=== PATIENT | female | born 1965 | race Caucasian/White ===

== ENCOUNTER → 2017-07-26 | Outpatient (CLI) | payer BC ==
[~2017-07-26] MED LIST: CYMB30CA PO; FLUO1TAB3 PO; GABA400 PO; GABA400C5 PO; IMIT25TA PO; LEVO75TA3 PO; MONT10TA2 PO; OMEP20TA39 PO; OMEP40CA2 PO; PERC7.5T13 PO; PROM12.54 PO; PROM25TA5 PO; PROZ20CA11 PO; SUMA100T2 PO; SYNT150T OR; TIZA4 PO; TRAZ100 PO; TRAZ100T10 PO; VITATAB43 PO; XANA1TAB2 PO; XANA1TAB6 PO
== END ==
LOC: CPRE 10:57
PROVIDERS: ATTEND Obstetrics & Gynecology
DX: Z00.00 Encounter for general adult medical examination without abnormal findings (principal)

== ENCOUNTER → 2017-07-28 | Day surgery (SDC) | payer BC ==
[~2017-07-28] VITALS: Ht 152.4 cm; Wt 73.0 kg
[~2017-07-28] MED LIST changes: +*morphine SULFATE 8 MG/ML PERIprocedure ONLY ONE; +ACETAMINOPHEN 1000 MG/100 ML 100 ML IV ONE; +APREPITANT 40 MG CAP PO ONE; +BUPIVACAINE HCL PF 0.25% 30 ML VIAL ONE; +CHLORHEXIDINE GLUCONATE 2 % 1 PACK (2 CLOTHS) TOPICAL PRN; -CYMB30CA PO; +DEXAMETHASONE SOD PHOS 4 MG/ML VIAL IV ONE; +DO NOT ADM ANY ANTICOAGULANT DRUGS PRN; +DOCUSATE SODIUM 100 MG CAP PO SCH; -GABA400 PO; +GLYCOPYRROLATE 1 MG/5 ML SYRINGE IV PUSH ONE; +HYDROmorphone HCL PF 1 MG/ML VIAL IVP PRN; +IBUPROFEN 600 MG TAB PO PRN; -IMIT25TA PO; +INSULIN HUMAN REGULAR 1,000 UNITS/10 ML VIAL SQ PRN; +KETOROLAC TROMETHAMINE 30 MG/ML (IVP) VIAL IV PUSH ONE; +KETOROLAC TROMETHAMINE 30 MG/ML (IVP) VIAL IVP PRN; +LACTATED RINGER'S 1000 ML INJ 1,000 ML IV SCH; +LACTATED RINGER'S 1000 ML IV PRN; +LIDOCAINE HCL 1% PF 5 ML AMPULE OTHER ONE; +LORazepam 0.5 MG TAB PO PRN; +METOPROLOL TARTRATE 25 MG TAB PO PRN; +MIDAZOLAM HCL 2 MG/2 ML VIAL IV ONE; +MORPHINE SULFATE 4 MG/ML INJ IV ONE; +NEOSTIGMINE 3 MG/3 ML SYR IV ONE; +NORMOSOL R INJ 1,000 ML IV ONE; -OMEP20TA39 PO; +ONDANSETRON HCL 4 MG/2 ML VIAL IV PUSH ONE; +ONDANSETRON HCL 4 MG/2 ML VIAL IVP PRN; +POVIDONE IODINE 5% (ANTISEPSIS KIT) 4 APPLICATIONS EACH NARE PRN; -PROM25TA5 PO; +PROPOFOL 200 MG/20 ML AMP IV ONE; -PROZ20CA11 PO; +ROCURONIUM INJ 50 MG/5 ML SYRINGE IV PUSH ONE; +SODIUM CHLORID 0.9% 500 ML IV PRN; +SODIUM CHLORIDE 0.9% FLUSH 10 ML FLUSH IV FLUSH PRN; +SODIUM CHLORIDE 0.9% FLUSH 10 ML FLUSH IV FLUSH SCH; +SUGAMMADEX SODIUM 200 MG/2 ML VIAL IV PUSH ONE; -SYNT150T OR; -TRAZ100 PO; -TRAZ100T10 PO; +TRAZ100T6 PO; -XANA1TAB6 PO; +ceFAZolin 2 GM PREMIX 50 ML IV SCH; +ePHEDrine/NS 25 MG/5 ML SYR IV ONE; +oxyCODONE/ACETAMINOPHEN 5 MG/325 MG TAB PO PRN
[2017-07-28 09:06] LABS: AUTOMATED NEUTROPHIL # 4.7 TH/MM3 (1.8-7.7); BASOPHIL # 0.1 TH/MM3 (0-0.2); BASOPHIL % 0.8 % (0.0-2.0); EOSINOPHIL # 0.2 TH/MM3 (0-0.4); EOSINOPHIL % 2.4 % (0.0-4.0); HEMATOCRIT 37.3 % (35.0-46.0); HEMO FLAGS DIFF FINAL; LYMPH % 27.3 % (9.0-44.0); MEAN CELL VOLUME 84.5 FL (80.0-100.0); MEAN CORPUSCULAR HEMOGLOBIN 28.4 PG (27.0-34.0); MEAN CORPUSCULAR HGB CONC 33.6 % (32.0-36.0); MONO % 6.4 % (0.0-8.0); NEUT % 63.1 % (16.0-70.0); PLATELET COUNT 258 TH/MM3 (150-450); RED BLOOD COUNT 4.42 MIL/MM3 (4.00-5.30); WHITE BLOOD COUNT 7.4 TH/MM3 (4.0-11.0)
[2017-07-28 09:09] LABS: BACTERIA, URINE RARE /hpf; BLOOD, URINE NEG (NEG); COMMENT (UR) CULT NOT INDICATED; CULTURE IF INDICATED CULT NOT INDICATED; GLUCOSE,URINE NEG (NEG); KETONE, URINE NEG (NEG); MUCUS URINE FEW /lpf (OCC); NITRITE,URINE NEG (NEG); SQUAMOUS EPITHELIAL CELL URINE 4 /hpf (0-5); TRANSITIONAL EPI CELLS, URINE <1 /hpf; URINE COLOR YELLOW (YELLW/STRAW)
[2017-07-28 09:34] LABS: BICARBONATE 26.3 MEQ/L (21.0-32.0)
[2017-07-28 09:35] LABS: POTASSIUM 4.3 MEQ/L (3.5-5.1)
[2017-07-28 17:05] VITALS: BP 112/64; PULSE 60; RESP 16; TEMP 98.6; O2SAT 96
--- NOTE | 2017-07-28 21:07 | EKG ---
Date Performed: 07/28/2017 Time Performed: 08:50:39 PTAGE: 51 years EKG: SINUS BRADYCARDIA BORDERLINE ECG NO PREVIOUS TRACING DOCTOR: Paula Potter Interpretating Date/Time 07/28/2017 21:05:42
--- NOTE | 2017-07-29 10:07 | MP ---
cc: NONI WISDOM (BRIEN PACHECO M.D., M.D. DATE OF SURGERY: 07/28/2017 1965 PREOPERATIVE DIAGNOSIS Patient with history of chronic pelvic pain, pelvic adhesive disease and acute onset right lower quadrant pain with normal CT scan. PROCEDURE Exam under anesthesia, diagnostic laparoscopy with operative laparoscopy, extensive lysis of adhesions and right salpingo-oophorectomy. POSTOPERATIVE DIAGNOSIS Patient with history of chronic pelvic pain, pelvic adhesive disease and acute onset right lower quadrant pain with normal CT scan. SURGEON Brien Kenyon MD ANESTHESIA General with endotracheal intubation. ESTIMATED BLOOD LOSS 50 ccs. DRAINS Varghese to gravity during the procedure only. OPERATIVE FINDINGS The patient had filmy omental adhesions from just below the umbilicus focused through the midline of the anterior abdominal wall and predominately on the patient's left side. There were adhesions involving the ascending colon. The appendix was partially retrocecal, appeared normal. There is no focal abnormality identified. The right adnexa was scarred adherently and densely to the sidewall on the right. The tube and ovary were confluent and there was no other evidence of pelvic endometriosis or other significant distorted adhesions. DESCRIPTION OF PROCEDURE The patient received Ancef prophylactically. She was taken to the operating room in stable condition. She underwent general anesthesia with endotracheal intubation. She was carefully positioned in dorsolithotomy position using Julio César stirrups on lower extremities. She was prepped and draped. She had sequentials placed on lower extremities for VTE prophylaxis. Varghese catheter was inserted by sterile technique. Time-out was conducted and agreed by all present in the room. The procedure initiated after the patient was draped and the abdomen was exposed. All previous scars and incisions were well-healed with no herniation. The umbilicus was visualized and injected with 0.25% plain Marcaine. A Veress needle was inserted through a small stab wound to insufflate the abdomen with low pressure. Approximately 2 liters of CO2 was insufflated. An incision in the umbilicus was extended to accommodate a 5 mm trocar which was placed directly into the peritoneal cavity without complication. Examination of the pelvic findings and anatomy was described above. This necessitated placement of 8 mm trocars on the right and left flank. These were then used in combination with blunt retraction and a monopolar scissor which was used on a setting of both cold and hot to take down the omental adhesions anteriorly. This allowed visualization of the right adnexa. At that point the da [place] patient cart was side docked with a #1 arm on the patient's right and #2 arm on the left. Monopolar scissors were attached to the #2 with a bipolar grasper in #1. Good articulation was noted. Attention was directed to the surgeon's console. Visualization was accomplished through binoculars. The umbilical port was switched to a 12 mm port site for the da [place] camera. This was all done prior to docking the patient cart. Continuation of the surgery through the surgeon cart allowed dissection of the left adnexa, tube and ovary complete, dissecting the infundibular pelvic vessels, skeletonizing them appropriately and ligating them hemostatically and resecting the tissue away from the sidewall. The ureter was easily identified and visualized and out of the operative field. Tissue specimen was sent to pathology after it was removed, at the completion of the case, no active bleeding or hematoma had formed. The pelvis was irrigated with copious normal saline and a piece of Interceed was placed over the right sidewall. After completion of the da [place] component of the procedure straight laparoscopy was utilized to finish the procedure and close the umbilical port with a crossbow device with a #1 Vicryl suture. Good result was noted. The pneumoperitoneum was then decompressed completely. The trocars were removed intact and the incision sites were closed with a subcuticular stitch of 4-0 Monocryl. The Varghese catheter was then removed intact. At the completion of the case the patient was stable. She was taken to the recovery room extubated on room air. Final count was correct. MD ANICETO Justice/CASTRO /5:21 PM /9:45 AM
== END | disposition home or self-care (01) ==
LOC: HSDC 06:59
PROVIDERS: ATTEND Obstetrics & Gynecology
DX: N94.89 Other specified conditions associated with female genital organs and menstrual cycle (principal); N73.6 Female pelvic peritoneal adhesions (postinfective); R94.31 Abnormal electrocardiogram [ECG] [EKG]
CPT/HCPCS: 00840; 58661; 80048; 81001; 85025; 86850; 86900; 86901; 88305; 93005; C1765; J0131; J0690; J1100; J1885; J2250; J2270; J2405; J2710; J3010